=== PATIENT | female | born 1965 | race Caucasian/White ===

== ENCOUNTER 2020-06-04 14:31 | Outpatient (CLI) | payer OTHER, SELFPAY ==
--- NOTE | ~2020-06-04 | XR_ITS ---
EXAMINATION: XR knee LT 3V, XR tibia fibula LT 2V, XR ankle LT min 3V DATE: 06/04/2020 15:03 INDICATION: Left lower leg pain post fall TECHNIQUE: 1. Weight bearing anteroposterior and Otero, sunrise, and flexed lateral views of the left knee w ere obtained 2. Anteroposterior and lateral views of the left tibia and fibula were obtained. 3. Anteroposterior, oblique, mortise, and lateral views of the left ankle were obtained. COMPARISON: None. FINDINGS: Bone alignment is normal at the left knee, ankle and visualized portion of the left foot which exclud es the toes. No fracture. Joint spaces spaces are normal. No left knee or ankle joint effusion. Soft tissue swelling at the medial side of the left ankle. IMPRESSION: 1. Soft tissue swelling at the medial left ankle. No osseous abnormality. Reviewed, dictated and finalized at location A. IMPRESSION: 1. Soft tissue swelling at the medial left ankle. No osseous abnormality. IMPRESSION: 1. Soft tissue swelling at the medial left ankle. No osseous abnormality.
== END 2020-06-04 14:32 | disposition home or self-care (01) ==
LOC: ANHIMG 14:40
PROVIDERS: PCP Internal Medicine; Visit Provider Clinical Nurse Specialist
DX: M79.669 Pain in unspecified lower leg (principal); M79.89 Other specified soft tissue disorders
CPT/HCPCS: 73562; 73590; 73610

== ENCOUNTER → 2020-06-10 09:46 | Outpatient (CLI) | payer OTHER, SELFPAY ==
--- NOTE | ~2020-06-10 | MR_ITS ---
EXAMINATION: MR knee LT wo con DATE: 06/10/2020 10:46 INDICATION: Left knee pain TECHNIQUE: Magnetic resonance imaging (MRI) of the left knee was performed without intravenous contra st. Sequences included coronal PD-weighted FSE, coronal PD-weighted FS FSE, sagittal T2-weighted FSE , sagittal PD-weighted FS FSE and axial PD weighted fat saturated FSE. COMPARISON: None. FINDINGS: Medial compartment: Medial meniscus is normal. Partial-thickness chondral fissuring without degenerative subarticular isabell nges at the anterior weightbearing medial femoral condyle. Partial thickness cartilage loss with natalee dral surface irregularity along the medial aspect of the medial tibial plateau. Lateral compartment: Lateral meniscus is normal. Partial-thickness chondral fissuring without degenerative subarticular ch anges at the posterior aspect of the lateral tibial plateau. Patellofemoral compartment: Chondral ulceration and deep fissuring at the medial patellar facet, apical ridge and medial side of the lateral patellar facet with mild underlying subarticular edema at the apical ridge. Trochlear car tilage appears normal. Ligaments and tendons: Anterior and posterior cruciate ligaments are normal. The medial collateral ligament and fibular chloe ateral ligament complex are normal. The extensor mechanism is normal. The visualized medial and later al hamstring tendons as well as the iliotibial band are normal. Fluid: Physiologic amount of fluid in the joint space. No loose osteochondral bodies identified. Osseous/other: Normal marrow signal. No fracture or pathologic marrow replacing process. There is feathery muscular edema within the medial head of the gastrocnemius muscle. There is a partially visualized 2.1 x 0.9 c m fluid collection in the deep aspect of the medial head of the gastrocnemius muscle centered approxi mately 8 cm caudal to the level of the tibiotalar joint line. On the outpatient physical therapist images there appears to be a discontinuity extending for approximately 2 cm craniocaudally along the tendon along the deep lydia in of the medial head of the gastrocnemius muscle. Findings consistent with a moderate grade strain/p artial tear with associated hematoma. The torn portion of the tendon measures approximately 1 cm in o rthogonal transaxial length. IMPRESSION: 1. Moderate grade strain/partial tear of the tendon at the posterior aspect of the medial head of the gastrocnemius muscle with associated small hematoma located 8 cm distal to the tibiotalar joint line . 2. 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 Reviewed, dictated and finalized at location A. IMPRESSION: 1. Moderate grade strain/partial tear of the tendon at the posterior aspect of the medial head of the gastrocnemius muscle with associated small hematoma loca bentley 8 cm distal to the tibiotalar joint line. 2. Mild tricompartmental osteoarthritis with moderate grade chondromalacia in t he medial and lateral compartments and moderate to high-grade patellar chondrom alacia.
--- NOTE | ~2020-06-10 | MR_ITS ---
EXAMINATION: MR ankle LT wo con DATE: 06/10/2020 11:06 INDICATION: Left ankle pain. TECHNIQUE: Magnetic resonance imaging (MRI) of the left ankle was performed without intravenous contr ast. Sequences included sagittal, coronal, and axial proton-density weighted fast spin echo without a nd with fat saturation. COMPARISON: None. FINDINGS: Medial ankle ligaments: There is loss of the normally more sharply defined striated pattern of the deep deltoid ligament as w ell as mild thickening and mild increased signal without significant surrounding edema at the junctio n of the anterior superficial deltoid ligament and the normal-appearing superomedial component of the spring ligament complex consistent with scarring related to chronic sprains. The spring ligament com plex is normal. Lateral ankle ligaments: The anterior and posterior inferior tibiofibular ligaments are normal. The anterior talofibular, calc aneofibular and posterior talofibular ligaments are normal. Tendons: The visualized distal portion of the Achilles tendon is normal. The peroneus longus and brevis tendon s are normal. The tibialis anterior and extensor hallucis longus and extensor digitorum longus tendon s are normal. The tibialis posterior, flexor digitorum longus and flexor hallucis longus tendons are normal. Plantar fascia: Mild thickening and mild increased signal of the proximal plantar aponeurosis without surrounding natali ma consistent with chronic mild enthesopathy. Bones/other: Bone alignment is normal. Normal marrow signal. No reactive edema, fracture, osteonecrosis or patholo gic marrow replacing process. Joint spaces are normal. No erosions. Fluid: Visualized amount of fluid in the joint spaces. Epimysial edema along the distal gastrocnemius muscle and Achilles tendon extending caudally into Kager fat pad likely related to the tear of the tendon i n the more proximal medial head of the gastrocnemius muscle seen on prior left knee MRI. See separate left knee MRI report for further detail. No other abnormal fluid collections. IMPRESSION: 1. Mild scarring of the deep and superficial deltoid ligament consistent with chronic medial ankle sp rain. 2. Edema along the distal gastrocnemius and Achilles tendon extending into Kager fat pad likely relat ed to the nonvisualized partial tear of the more proximal tendon along the medial gastrocnemius muscl e. See separate MRI report for further detail. Reviewed, dictated and finalized at location A. IMPRESSION: 1. Mild scarring of the deep and superficial deltoid ligament consistent with c hronic medial ankle sprain. 2. Edema along the distal gastrocnemius and Achilles tendon extending into Kage r fat pad likely related to the nonvisualized partial tear of the more proximal tendon along the medial gastrocnemius muscle. See separate MRI report for furt her detail.
== END ==
PROVIDERS: PCP Internal Medicine; Visit Provider Clinical Nurse Specialist
DX: M25.579 Pain in unspecified ankle and joints of unspecified foot (principal); M25.569 Pain in unspecified knee; M79.89 Other specified soft tissue disorders; S86.812A Strain of other muscle(s) and tendon(s) at lower leg level, left leg, initial encounter; M17.12 Unilateral primary osteoarthritis, left knee; M94.262 Chondromalacia, left knee
CPT/HCPCS: 73721